=== PATIENT | male | born 2005 | race Caucasian/White ===

== ENCOUNTER 2025-04-15 18:27 | Emergency (ER) | payer MEDICAID ==
[~2025-04-15] VITALS: Ht 177.8 cm; Wt 87.5 kg
[2025-04-15 18:36] VITALS: BP 119/77; PULSE 90; RESP 15; O2SAT 99
[2025-04-15] MEDS ORDERED: CEPH-585 PO (19:34)
[2025-04-15] MEDS ORDERED: SULF1TAB45 PO (19:34)
--- NOTE | 2025-04-15 19:34 | Physician Documentation ---
History of Present Illness ~ Chief Complaint: Finger pain Stated Complaint: L INDEX FINGER PAIN Time Seen by MD: 19:28 [facility] 19-year-old male presents with a complaint of left index pain after injuring his finger two weeks ago. States that he accidentally cut off the tip of his index finger. Since then he has developed increased pain swelling he denies any discharge denies any fevers. Medication Reconciliation Allergies: Coded Allergies: No Known Allergies (Unverified , 04/15/25) Review of Systems All Other Systems at this time: Reviewed and Negative ROS As stated above in the HPI, otherwise all systems are reviewed and negative. Physical Exam Vital Signs: Temperature: 97.6, Source: Temporal, Heart Rate: 90, Respiratory Rate: 15, BP: 119/77, Pulse Oximetry: 99, Weight: 87.500 Physical Exam General: Alert, no apparent distress. Respiratory: Lungs clear, no respiratory distress. Extremities: Left index finger notable for increased swelling at the most distal aspect partial amputation of the tip which has a healing scab ,no evidence of drainage Neurologic: Oriented x4. Psychiatric: Normal mood and affect. Skin: Normal color, warm and dry. No edema, no ecchymosis. Progress Results/Orders Results/Orders Vital Signs 04/15/25 18:36 Temp 97.6 Pulse 90 Resp 15 B/P (MAP) 119/77 Pulse Ox 99 Medical Decision Making Findings Patient should have come in to be evaluated lab to his initial injury however he he did not and now has developed a minor infection in his distal aspect of his finger. He reported to me that he also has a history of staph or MRSA infections. With a therefore I feel obligated to start him on antibiotics. On see any evidence of purulent discharge or an area that requires lancing. General Diff Dx:Considerations: Include: Abrasion, Contusion, Fracture, Hematoma, Laceration, Malunion, Neurovascular injury, Open fracture, Sprain, Ulcer, Other Finger Diff Dx:Considerations: Include: Abrasion, Cellulitis, Contusion, Dislocation, Fracture, Hematoma, Laceration, Neurovascular injury, Open fracture, Subungual hematoma, Other Departure Disposition: 01 HOME / SELF CARE / HOMELESS Impression: Primary Impression: Abscess Condition: Stable Discharge Instructions: Abscess/Boil Referrals: NO PRIMARY CARE PROVIDER (PCP) Prescriptions Cephalexin*Monohydrate* (Keflex*) 500 Mg Capsule 1 CAP PO QID, #40 CAP Prov: SAAD BENITO NP 04/15/25 Sulfamethoxazole/Trimethoprim (Septra Ds Tab) 800 Mg/160 Mg Tablet 1 TAB PO Q12H for 10 Days, #20 TAB Prov: SAAD BENITO NP 04/15/25 Signature Scribe Signature: t Attestation: Scribed for Emergency,Department by Saad Benito - MIHAELA . 04/15/25 19:34 SAAD BENITO NP Apr 15, 2025 19:34
[2025-04-15 19:40] VITALS: TEMP 97.6
== END 2025-04-15 19:41 | disposition home or self-care (01) ==
LOC: ER 18:29
DX: L02.512 Cutaneous abscess of left hand (principal)
CPT/HCPCS: 99283